=== PATIENT | male | born 1980 | race Caucasian/White ===

== ENCOUNTER 2020-03-31 14:30 | Emergency (ER) | payer OTHER ==
[~2020-03-31 14:30] MED LIST: ASPIRIN EC325 MG PO; COZAAR100 MG PO; FLEXERIL10 MG PO; IMITREX100 MG PO; KEFLEX500 MG PO; MIRALAX17 GM PO; NAPROXEN500 MG PO; NORVASC5 MG PO; PREDNISONE 20MG20 MG PO; TOPAMAX100 MG PO; VICODIN 10/3251 EACH PO
[2020-03-31] MEDS ORDERED: PERCOCET 5-3251 EACH PO (15:25)
== END 2020-03-31 16:50 | disposition home or self-care (01) ==
LOC: FER 14:30
DX: M25.562 Pain in left knee (principal); E66.01 Morbid (severe) obesity due to excess calories; I10 Essential (primary) hypertension; Z88.0 Allergy status to penicillin; Z86.16 Personal history of COVID-19
CPT/HCPCS: 99283; J1170

== ENCOUNTER 2020-07-07 07:47 | Emergency (ER) | payer OTHER ==
[~2020-07-07 07:47] MED LIST changes: +PERCOCET 5-3251 EACH PO
[2020-07-07 09:20] LABS: BASOPHIL 0.7 % (0-2); EOSINOPHIL 2.6 % (0-5); HCT 40.4 % (42.0-52.0); LYMPHOCYTE 33.4 % (15-48); MCHC 32.2 g/dL (32.0-36.0); MCV 96.4 fL (78.0-100.0); MONOCYTE 7.6 % (0-12); MPV 10.4 fL (6.0-9.5); NEUTROPHIL 55.5 % (41-80); NRBC 0; PLT 134 K/uL (150-400); RBC 4.19 M/uL (4.70-6.00); RDW 13.8 % (11.5-14.0); WBC 4.2 K/uL (4.0-10.5)
[2020-07-07 09:30] LABS: INR 1.07 (0.9-1.2); PROTHROMBIN TIME 13.2 SECONDS (11.4-13.6); PTT 28.4 SECONDS (22.2-34.7)
[2020-07-07 09:44] LABS: PRO-BNP 111 pg/mL (<125)
[2020-07-07 09:47] LABS: ALBUMIN 3.1 g/dL (3.4-5.0); BILIRUBIN - TOTAL 0.5 mg/dL (0.2-1.0); BUN/CREAT RATIO (CALC) 10.3 RATIO; CREATININE 0.87 mg/dL (0.67-1.17); GLOBULIN (CALCULATION) 4.1 g/dL; POTASSIUM 4.1 mmol/L (3.5-5.1); TOTAL PROTEIN 7.2 g/dL (6.4-8.2)
[2020-07-07 09:53] LABS: BILIRUBIN NEGATIVE (NEGATIVE); BLOOD NEGATIVE Ery/uL (NEGATIVE); CLARITY CLEAR (CLEAR); COLOR YELLOW (YELLOW); GLUCOSE (U) NORMAL (NORMAL); LEUKOCYTES NEGATIVE Leu/uL (NEGATIVE); NITRITE NEGATIVE (NEGATIVE); PROTEIN NEGATIVE (NEGATIVE); UROBILINOGEN 0.2 mg/dL (0.2-1.0)
== END 2020-07-07 12:30 | disposition home or self-care (01) ==
LOC: FER 07:47
PROVIDERS: Emergency Medicine
DX: G93.2 Benign intracranial hypertension (principal); I10 Essential (primary) hypertension; Z88.0 Allergy status to penicillin; Z79.899 Other long term (current) drug therapy
CPT/HCPCS: 36415; 70450; 80053; 81003; 83036; 83605; 83735; 83880; 84145; 84439; 84443; 84484; 85025; 85610; 85730; 93005; J7030

== ENCOUNTER 2020-08-05 04:52 | Emergency (ER) | payer OTHER ==
[2020-08-05 05:40] LABS: BASOPHIL 0.4 % (0-2); EOSINOPHIL 0.1 % (0-5); HCT 40.2 % (42.0-52.0); HGB 13.1 g/dl (13.2-18.0); LYMPHOCYTE 26.4 % (15-48); MCH 30.8 pg (25.0-31.0); MCHC 32.6 g/dL (32.0-36.0); MCV 94.4 fL (78.0-100.0); MONOCYTE 5.8 % (0-12); MPV 10.6 fL (6.0-9.5); NEUTROPHIL 66.7 % (41-80); NRBC 0; PLT 149 K/uL (150-400); RBC 4.26 M/uL (4.70-6.00); RDW 13.6 % (11.5-14.0); WBC 6.7 K/uL (4.0-10.5)
[2020-08-05] MEDS ORDERED: DIAMOX250 MG PO (06:08)
[2020-08-05 06:26] LABS: BUN 20 mg/dL (7-18); BUN/CREAT RATIO (CALC) 24.7 RATIO; CHLORIDE 104 mmol/L (98-107); CO2 (BICARBONATE) 29 mmol/L (21-32); CREATININE 0.81 mg/dL (0.67-1.17); GLUCOSE 93 mg/dL (74-106); POTASSIUM 3.8 mmol/L (3.5-5.1)
[2020-08-05 06:27] LABS: C-REACTIVE PROTEIN < 0.20 mg/dL (<=0.90)
== END 2020-08-05 06:18 | disposition home or self-care (01) ==
LOC: FER 04:52
PROVIDERS: Emergency Medicine Emergency Medical Services
DX: I10 Essential (primary) hypertension (principal); R11.0 Nausea; R60.0 Localized edema; F17.220 Nicotine dependence, chewing tobacco, uncomplicated; Z88.0 Allergy status to penicillin; Z79.899 Other long term (current) drug therapy
CPT/HCPCS: 36415; 80048; 83880; 85025; 86140; 96372; J1100; J1200; J1885; J2765; J3030

== ENCOUNTER 2020-10-02 11:18 | Emergency (ER) | payer OTHER ==
[~2020-10-02 11:18] MED LIST changes: +DIAMOX250 MG PO
[2020-10-02] MEDS ORDERED: BACTRIM DS TAB1 EACH PO (12:20)
[2020-10-02 13:01] LABS: BILIRUBIN - TOTAL 0.8 mg/dL (0.2-1.0); BUN/CREAT RATIO (CALC) 8.9 RATIO; CREATININE 1.01 mg/dL (0.67-1.17); POTASSIUM 4.3 mmol/L (3.5-5.1)
[2020-10-02] MEDS ORDERED: FUROSEMIDE 20MG20 MG PO (13:25)
== END 2020-10-02 13:47 | disposition home or self-care (01) ==
LOC: FER 11:18
PROVIDERS: Internal Medicine
DX: I87.2 Venous insufficiency (chronic) (peripheral) (principal); L03.116 Cellulitis of left lower limb; L03.115 Cellulitis of right lower limb; I10 Essential (primary) hypertension; F17.220 Nicotine dependence, chewing tobacco, uncomplicated; Z88.0 Allergy status to penicillin; Z98.890 Other specified postprocedural states
CPT/HCPCS: 36415; 80053; 99283

== ENCOUNTER 2020-10-08 02:36 | Emergency (ER) | payer OTHER ==
[~2020-10-08 02:36] MED LIST changes: +BACTRIM DS TAB1 EACH PO; +FUROSEMIDE 20MG20 MG PO
[2020-10-08 03:26] LABS: BASOPHIL 0.2 % (0-2); EOSINOPHIL 0 % (0-5); HCT 43.4 % (42.0-52.0); HGB 14.3 g/dl (13.2-18.0); LYMPHOCYTE 22.6 % (15-48); MCH 30.2 pg (25.0-31.0); MCHC 32.9 g/dL (32.0-36.0); MCV 91.8 fL (78.0-100.0); MONOCYTE 2.2 % (0-12); MPV 10.1 fL (6.0-9.5); NEUTROPHIL 74.6 % (41-80); NRBC 0; PLT 217 K/uL (150-400); RBC 4.73 M/uL (4.70-6.00); RDW 13.2 % (11.5-14.0); WBC 5.1 K/uL (4.0-10.5)
== END 2020-10-08 04:28 | disposition home or self-care (01) ==
LOC: FER 02:36
PROVIDERS: Emergency Medicine
DX: I26.99 Other pulmonary embolism without acute cor pulmonale (principal); G43.909 Migraine, unspecified, not intractable, without status migrainosus; I10 Essential (primary) hypertension; F17.220 Nicotine dependence, chewing tobacco, uncomplicated; Z88.0 Allergy status to penicillin
CPT/HCPCS: 36415; 71045; 85025; 96372; J0780; J1650; J1885